=== PATIENT | male | born 1995 | race Caucasian/White ===

== ENCOUNTER 2018-07-20 06:33 | Day surgery (SDC) | payer OTHER ==
[2018-07-20] MEDS ORDERED: ONDANSETRON 4 MG INJ (07:00)
[2018-07-20] MEDS ORDERED: DEXAMETHASONE 4 MG/ML 1 ML INJ (07:00)
[2018-07-20] MEDS ORDERED: FENTAnyl 50 MCG/ML VIAL (08:10)
[2018-07-20] MEDS ORDERED: MIDAZOLAM 1 MG/ML 2 ML INJ (08:11)
[2018-07-20] MEDS ORDERED: SUCCINYLCHOLINE CHLORIDE 100 MG/5 ML SYG IV (08:12)
[2018-07-20] MEDS ORDERED: PROPOFOL 20 ML (08:13)
[2018-07-20] MEDS ORDERED: METOCLOPRAMIDE 10 MG INJ (08:13)
[2018-07-20] MEDS ORDERED: LIDOCAINE 2% (SDV) 5 ML INJ (08:14)
[2018-07-20] MEDS ORDERED: PROVENTIL HFA 6.7GM INHALER (08:20)
[2018-07-20] MEDS ORDERED: IPRATROPIUM (NEB) 0.5 MG/2.5 ML AMP HHN (09:00)
[2018-07-20] MEDS ORDERED: ONDANSETRON 4 MG INJ IV (09:00)
[2018-07-20] MEDS ORDERED: MEPERIDINE 25 MG INJ IV (09:00)
[2018-07-20] MEDS ORDERED: DIPHENHYDRAMINE 50 MG INJ IV (09:00)
[2018-07-20] MEDS ORDERED: HYDROmorphONE 1 MG/5 ML IV SYRINGE IV ×2 (09:00)
[2018-07-20] MEDS ORDERED: FENTAnyl 50 MCG/ML VIAL IV ×2 (09:00)
== END 2018-07-20 11:45 | disposition home or self-care (01) ==
LOC: SDS 06:33
DX: J35.01 Chronic tonsillitis (principal)
CPT/HCPCS: 42821; 88304